=== PATIENT | female | born 1995 | race African-American/Black ===

== ENCOUNTER 2024-12-20 08:29 | Emergency (ER) | payer MEDICAID ==
[~2024-12-20] VITALS: Ht 175.3 cm; Wt 79.0 kg
[2024-12-20 08:32] VITALS: BP 108/59; PULSE 109; RESP 16; TEMP 36.9; O2SAT 100
== END 2024-12-20 10:30 | disposition left against medical advice (07) ==
LOC: ER 08:29
DX: S71.112D Laceration without foreign body, left thigh, subsequent encounter (principal); S71.111D Laceration without foreign body, right thigh, subsequent encounter; F12.10 Cannabis abuse, uncomplicated; Z48.02 Encounter for removal of sutures; X58.XXXD Exposure to other specified factors, subsequent encounter
CPT/HCPCS: 99283